=== PATIENT | female | born 1995 | race Hispanic/Latino ===

== ENCOUNTER 2017-01-22 01:23 | Outpatient (CLI) | payer SELFPAY ==
[2017-01-22 01:40] VITALS: BP 113/60
[2017-01-22] MEDS ORDERED: LACTATED RINGERS 500 ML IV ONE (02:41)
== END 2017-01-22 02:45 | disposition home or self-care (01) ==
LOC: TRG 01:23
PROVIDERS: ATTEND Obstetrics & Gynecology
DX: O99.333 Smoking (tobacco) complicating pregnancy, third trimester (principal); O47.03 False labor before 37 completed weeks of gestation, third trimester; Z3A.36 36 weeks gestation of pregnancy